=== PATIENT | male | born 1930 | race Caucasian/White ===

== ENCOUNTER → 2017-08-11 | Outpatient (CLI) | payer MEDICARE, OTHER ==
[~2017-08-11] MED LIST: ACYCLOVIR 400400 MG PO; ALLEGRA ALLERG180 MG; ALLEGRA ALLERG180 MG PO; ALLOPURINOL 30300 M1 PO; AMARYL2 M1 PO; AMBIEN 10 MG TA10 MG PO; ASPIRIN-DIPYRI1 EACH PO; AUGMENTIN 875875 M1; CARAFATE 11 GM/10 M1 PO; CARVEDILOL3.125 MG PO; DIFLUCAN150 MG PO; DIOVAN 80 MG TA80 M1 PO; DIOVAN160 MG PO; FLOMAX PO; HYDROCODON-ACE1 EAC7 PO; IMDUR 30 MG TAB30 M1 PO; K-DUR 20 MEQ T20 MEQ PO; LANOXIN 0.120.125 M1 PO; LASIX 20 MG TAB20 MG PO; LIPITOR 20 MG T20 M1 PO; LO-DOSE ASPIRIN81 M1 PO; METFORMIN HCL500 M2 PO; MOBIC15 MG PO; NEXIUM 40 MG CA40 M1 PO; NITROGLYCERIN0.4 MG SUBLING; RESTASIS1 EACH OPHTHALMIC; SYNTHROID75 MCG PO; TOPROL XL50 MG PO; VICTOZA0.6 MG/0.1 SUBQ; ZOCOR40 MG PO
--- NOTE | 2017-08-26 13:59 | PAINCON ---
[address] [address] PAIN MANAGEMENT CONSULTATION Name: CALVIN SCHMITT Room: [facility] Pina#: [id number] Admission: 08/11/17 Attend Phys: Aston Read MD Discharge: Date of : 30 Report #: [id number] THIS REPORT FOR: //name// CC: Rachel Rodriguez DATE OF SERVICE: 08/11/2017 CHIEF COMPLAINT: Pain in the left side of the neck and down into the shoulder. HISTORY OF PRESENT ILLNESS: The patient is an 87-year-old gentleman who has been referred to the pain clinic for evaluation of neck pain. The patient states that he has been experiencing pain and discomfort, which has been increasingly problematic. He states that he last year was moving snow off his deck. He states that he stepped on a step, slipped and fell backwards. He had his right hand behind his head. He did not hit his head. He denies loss of consciousness. He also recounts the activity where he was "going to bed." The next thing he remembered was waking up in the hospital. The patient states that he remained in the hospital for about 6 days. The patient states that imaging of his head did not show an infarct or hemorrhage or masses. He states that he had an MRI in the past that showed some spondylosis which was worse in the mid portion of his neck as well as some spinal stenosis. He rates his pain as a 7/10 at this juncture. He is not sure, but he may feel that there has been some tingling down into his arms. Not so much at this moment. He has tried some [id number] medications as well as muscle relaxant. He has used [place]/hydrocodone ____ 2 a day for about the past 15 years. ALLERGIES: No known drug allergies. CURRENT MEDICATIONS: Aspirin/dipyridamole 25/200 mg b.i.d., Lipitor 20 mg daily, Coreg 3.125 mg b.i.d., Restasis each eye b.i.d., digoxin 0.125 mg daily, Nexium 40 mg, Savanna 180 mg, Lasix 20 mg as directed, Amaryl 2 mg, hydrocodone 5/325 q.4h. p.r.n., Imdur 30 mg, levothyroxine 75 mcg, metformin 500 mg 2 tablets b.i.d., nitroglycerin 0.4 mg sublingual, potassium 20 mEq with Lasix, Flomax 0.4 mg daily, Diovan 80 mg, and Ambien 10 mg at bedtime. PAST MEDICAL HISTORY: Angioplasty, coronary artery disease, cervical radiculopathy history, chronic kidney disease, congestive heart failure, diabetes, hypothyroidism, and thoracic radiculopathy. PAST SURGICAL HISTORY: Back surgery, cardiac pacemaker placement, cataract extraction, colonoscopy, EGD procedure, hernia repair, kidney stone surgery, nerve surgery, right groin, rotator cuff, bilateral, stent replacement, [place] [address] PAIN MANAGEMENT CONSULTATION Name: CALVIN SCHMITT Room: [facility]#: [id number] Admission: 08/11/17 Attend Phys: Aston Read MD Discharge: Date of : 30 Report #: [id number] SOCIAL HISTORY: He is a former smoker. Denies use of tobacco at this juncture. Denies use of alcoholic beverages. REVIEW OF SYSTEMS: Questionnaire indicates wears glasses, heart trouble, shortness of breath while lying flat, insulin. Otherwise, 12-point review unremarkable. LABORATORY DATA: MRI of cervical spine with performed 02/03/2017 reveal: 1. Straightening of cervical lordosis. Mild to moderate deep multilevel degenerative and disc desiccation and disc height loss, worse at C6-C7. 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 No marrow replacement. Discogenic endplate changes at C6-C7. 2. C4-C5 posterior disc osteophyte complex with right and severe left facet arthrosis. Result in mild to moderate spinal canal stenosis and mild left-sided lateral recess and neural foraminal stenosis. 3. C5-C6 posterior disc osteophyte complex with mild right and severe left facet arthrosis. 4. C6-C7 posterior disc osteophyte complex with moderate bilateral facet arthrosis. Result in mild spinal canal stenosis and mild bilateral recess and neural foraminal stenosis. 5. C7-T1: No significant spinal canal stenosis or neural foraminal narrowing. PAIN CLINIC ASSESSMENT: 1. The patient has some arthritic changes in his cervical spine. 2. Height 6 feet, weight 203 pounds, BMI is 27. 3. VITAL SIGNS: Blood pressure was 96/63, heart rate 79, respiratory rate 16, room air saturation is 98, temperature 97.3. 4. Pain score: The patient rates his pain as a 7/10. 5. Fall. The patient has not fallen in the last 3 months, but did fall in early March as well as a fall when he slipped off the porch in the winter. 6. Blood thinner. The patient is on an aspirin and dipyridamole b.i.d. He will stop this medication for 7 days. Return for treatment. 7. Hypertension. The patient is being treated for hypertension. 8. Opioid therapy. The patient is on an opioid therapy and does receive medications greater than 6 weeks using hydrocodone. 9. Risk assessment tool. 10. Functional assessment tool. 11. Recreational drug use. The patient denies use of recreational drugs. 12. Tobacco: The patient smoked in the past, but does not smoke at this juncture. 13. Alcohol: The patient denies use of alcoholic medications. PHYSICAL EXAMINATION: GENERAL: The patient is a well-developed white male. He appears his stated age. He is alert and oriented x 3. Affect is appropriate. Speech is fluent. HEENT: Normocephalic, atraumatic. [place] [address] PAIN MANAGEMENT CONSULTATION Name: CALVIN SCHMITT Room: [facility]#: [id number] Admission: 08/11/17 Attend Phys: Aston Read MD Discharge: Date of : 30 Report #: [id number] generally within normal limits. Mucous membranes are moist. NECK: Some limitations in flexion, extension, left and right lateral bending, left and right lateral rotation. The patient has a perception of some grinding sensation when he turns his head from one side to the next. HEART: Regular rate. S1, S2. LUNGS: Clear to auscultation without rales or rhonchi. ABDOMEN: Nontender. EXTREMITIES: Upper extremity muscle strength is judged to be 5/5 for the major muscle groups in the upper extremity. Deep tendon reflexes are trace for the left as well as the right side. The patient has some increased pain and discomfort in the shoulders bilaterally. Both have been surgerized in the past. Java Application Engineer strength 5/5 for the major muscle groups in the upper extremity with symmetry of muscles. Lower extremity muscle strength is judged to be 5/5. Deep tendon reflexes are absent in the ankles and in the patellar areas. Muscles are symmetrical. The patient has some well-healed scar in the lower portion of his back. Has bilateral left and right shoulder pain. Able to lift his arms up to horizontal and then note some increased pain and discomfort in the shoulder areas. Palpation in the neck near the levator scapulae causes a reproduction of a significant component of his pain. Pain in the upper neck with the insertion of the levator scapulae is sore to palpation. The patient has some soreness at approximately T3-4 midline tenderness to palpation. IMPRESSION: Left neck pain with shoulder pain as well as some midline back pain, coronary artery disease, cervical radiculopathy history, chronic kidney disease, congestive heart failure, diabetes, hypothyroidism, and thoracic radiculopathy. RECOMMENDATIONS: We discussed treatment options with the patient. He has pain and discomfort in the left shoulder area. Trigger point areas are noted. He will stop his blood thinning medication. He will return in 1 week, at which time, he will then undergo trigger point injections to the affected areas of his left shoulder, mid back and neck. Risks and benefits of the procedures were discussed with the patient. We will review them again when he returns. We would like to thank you for letting us participate in his care. We hope he continues to improve. <ELECTRONICALLY SIGNED> By: Aston Read MD 08/26/17 1359 1410 1956N. Darrell Read MD /nt
== END ==
LOC: M.PC 00:09
DX: E11.22 Type 2 diabetes mellitus with diabetic chronic kidney disease (principal); I50.9 Heart failure, unspecified; I25.10 Atherosclerotic heart disease of native coronary artery without angina pectoris; M54.2 Cervicalgia; M25.512 Pain in left shoulder; M54.5 Low back pain; M54.14 Radiculopathy, thoracic region; E03.9 Hypothyroidism, unspecified

== ENCOUNTER → 2017-08-20 | Outpatient (CLI) | payer MEDICARE, OTHER ==
--- NOTE | 2017-08-26 14:14 | PAINCON ---
[address] [address] PAIN MANAGEMENT CONSULTATION Name: CALVIN SCHMITT Room: [facility]#: [id number] Admission: 08/20/17 Attend Phys: Aston Read MD Discharge: Date of : 30 Report #: [id number] THIS REPORT FOR: //name// CC: Rachel Ayala DO DATE OF SERVICE: 08/20/2017 FOLLOWUP COMPLAINT: Pain in the neck and in the left shoulder. HISTORY OF PRESENT ILLNESS: The patient is an 87-year-old gentleman who has been referred to the pain clinic for evaluation. The patient states that he has been experiencing pain and discomfort in his left shoulder, posterior neck, and upper occipital portion of his head. He has been told that he has some spinal stenosis. He feels that on occasion. He has experienced some tingling, which has radiated down into his arms. At this juncture, it is more pain in the shoulder occipital area and scapular area on his back. He has returned to the pain clinic for trigger point injections today. ALLERGIES: No known drug allergies. MEDICATIONS: Aspirin/dipyridamole 25/200 mg b.i.d. The patient has not taken this for a number of days, Lipitor 20 mg daily, Coreg 3.125 mg b.i.d., Restasis each eye, digoxin 0.125 mg daily, Nexium 40 mg, Savanna 180 mg, Lasix 20 mg as directed, Amaryl 20 mg, hydrocodone 5/325 p.r.n., Imdur 30 mg, levothyroxine 75 mcg, metformin 500 mg b.i.d., nitroglycerin 0.4 mg sublingual, potassium 20 mEq with Lasix, Flomax 0.4 mg daily, Diovan 80 mg, Ambien 10 mg at bedtime. PAIN CLINIC ASSESSMENT: 1. The patient has some arthritic changes in the cervical spine. 2. Height 6 feet, Weight 203 pounds, BMI is 27.5. 3. Vital signs: Blood pressure 104/70, heart rate 78, respiratory rate 16, room air saturation 97%, temperature 97.5. 4. Pain clinic score, the patient rates his pain as a 5 today, down from 7 at the last visit out of 10. 5. Fall history: The patient has not fallen in the last 3 months, but did fall in March when he slipped on a porch. 6. Hypertension. The patient is being treated for hypertension. 7. Opioid. The patient is on opioid therapy, and has received the medication for greater than 6 weeks. 8. Risk assessment tool. 9. Functional assessment tool. 10. Recreational drug use. The patient denies use of recreational drugs. 11. Tobacco. The patient smoked in the past, [place] [address] PAIN MANAGEMENT CONSULTATION Name: CALVIN SCHMITT Room: [facility]#: [id number] Admission: 08/20/17 Attend Phys: Aston Read MD Discharge: Date of : 30 Report #: [id number] time. 12. Alcohol: The patient denies use of alcoholic beverages. PHYSICAL EXAMINATION: GENERAL: The patient is a well-developed white male. He appears his stated age. He is alert and oriented x 3. His affect is appropriate. Speech is fluent. HEENT: Normocephalic, atraumatic. Extraocular eye muscles intact. Hearing is within normal limits. The patient does have some pain and discomfort in the left occipital area. Palpation in this area does reproduce some discomfort. The patient notes some limitation in flexion, extension, left and right lateral bending, left and right lateral rotation. The patient has a perception of some grinding sensation in his neck. Has pain and discomfort in the area of the levator scapulae. Has pain and discomfort in the area of the left trapezius muscle. HEART: Regular rate. S1, S2. LUNGS: Clear to auscultation without rales or rhonchi. ABDOMEN: Nontender. EXTREMITY: Upper extremity muscle strength is judged to be 5/5 for the major groups with symmetry. He has the perception that his arms are weak. Revenue Liaison strength is judged to be 5/5. The patient does require some assistance when he is lying on the examination table for the procedure and goes from a prone position to a sitting position. Muscle strength in the lower extremities is judged to be 5/5 for the major muscle groups in lower extremities. Palpation in his neck near the levator scapulae, trapezius on the left side and occipital area causes a reproduction of the patient's discomfort. IMPRESSION: 1. Left neck pain with shoulder pain with some midline discomfort. 2. Coronary artery disease. 3. Cervical radiculopathy history. 4. Chronic kidney disease. 5. Congestive failure history. 6. Diabetes. 7. Hypothyroidism. 8. Thoracic radiculopathy. RECOMMENDATIONS: We discussed treatment options with the patient. Risks and benefits of trigger point injections were explained. Possible complications of an increased bleeding, headache, worsening of pain, no improvement in pain, thoracic puncture with a pneumothorax were reviewed. The patient elects to proceed. He has noted some increased swelling in his lower extremities. Left leg has +1 edema to mid calf and more swelling than the contralateral left side. The patient has a little difficulty getting his shoes on and the lace because of the swelling. States he noticed this after he stopped taking his blood thinning medication. The patient agrees to proceed with the procedure. [address] [address] PAIN MANAGEMENT CONSULTATION Name: CALVIN SCHMITT Room: [facility]#: [id number] Admission: 08/20/17 Attend Phys: Aston Read MD Discharge: Date of : 30 Report #: [id number] PROCEDURE NOTE: The patient was placed in the sitting position. His neck was sterilely prepped with a chlorhexidine solution in the trapezius area. A trigger point was noted. A 25-gauge needle was then advanced into the area of discomfort. The patient states this reproduced his discomfort. Total of 6 mL of 0.5%, bupivacaine and 25 mg triamcinolone was injected. The levator scapulae was then palpated. A 25-gauge needle was then advanced into this area. A total of 25 mg triamcinolone with 6 mL of 0.5% bupivacaine was injected. The patient tolerated the procedure well. The patient was then placed in the prone position. The occipital area had been sterilely prepped with Betadine. It was allowed to dry. A 25-gauge needle was then advanced into this area. A total of 6 mL of 0.5% bupivacaine with 30 mg triamcinolone was injected. The patient tolerated the procedure well. There were no complications. He remained in the pain clinic for an appropriate amount of time. He will follow up in the future as needed. We would like to thank you for letting us participate in his care. We hope he continues to improve. <ELECTRONICALLY SIGNED> By: Aston Read MD 08/26/17 1414 1603 1858N. Darrell Read MD /PMT
== END | disposition home or self-care (01) ==
LOC: M.PC 02:20
DX: M79.1 Myalgia (principal); M54.12 Radiculopathy, cervical region; I13.0 Hypertensive heart and chronic kidney disease with heart failure and stage 1 through stage 4 chronic kidney disease, or unspecified chronic kidney disease; E11.22 Type 2 diabetes mellitus with diabetic chronic kidney disease; N18.9 Chronic kidney disease, unspecified; I50.9 Heart failure, unspecified; I25.10 Atherosclerotic heart disease of native coronary artery without angina pectoris; E03.9 Hypothyroidism, unspecified; M54.14 Radiculopathy, thoracic region; Z87.891 Personal history of nicotine dependence; Z79.899 Other long term (current) drug therapy; Z98.890 Other specified postprocedural states; Z79.82 Long term (current) use of aspirin; Z79.891 Long term (current) use of opiate analgesic

== ENCOUNTER → 2018-01-14 | Outpatient (CLI) | payer MEDICARE, OTHER ==
--- NOTE | 2018-01-27 16:38 | PAINCON ---
[address] [address] PAIN MANAGEMENT CONSULTATION Name: CALVIN SCHMITT [facility] [id number] Admission: 01/14/18 Attend Phys: Aston Read MD Discharge: Date of : 30 Report #: [id number] THIS REPORT FOR: //name// CC: Aston Rodriguez DATE OF SERVICE: 01/14/2018 FOLLOWUP COMPLAINT: Pain in the left shoulder, which is going down in my arm as well. FOLLOWUP HISTORY: The patient is an 87-year-old gentleman who has been seen in the pain clinic. He was treated in August for left shoulder pain. He underwent trigger point injections to his shoulder area. He had clean benefits from that. He returns today indicating that he is having more pain and discomfort. It is more problematic. His is handicapped. So he has to do most of the activities at home. He does have a lawnmower which he uses to mow approximately 6 acres of land. 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 After some period of time while riding the more he notes some increased pain and discomfort in his shoulder. He then stopped mowing. Gets becomes in and sometimes rests for. He will then resume his activity. He does note some increased stiffness in the arm and shoulder area 1-2 days after his activities. He has returned today with the desire to undergo an injection to the shoulder. He has stopped his Aggrenox and has been off this medication for the last 7 days in preparation for an injection. ALLERGIES: No known drug allergies. CURRENT MEDICATIONS: Aspirin/dipyridamole 25/200 mg b.i.d., Lipitor 20 mg daily, Coreg 3.125 b.i.d., Restasis each eye, digoxin 0.125 mg daily, Nexium 40 mg, [place]anna 180 mg, Lasix 20 mg, Amaryl 20 mg, hydrocodone 5/325 p.r.n., Imdur 30 mg, levothyroxine 75 mcg, metformin 500 mg b.i.d., nitroglycerin 0.4 mg sublingual, potassium 20 mEq with Lasix, Flomax 0.4 mg daily, Diovan 80 mg, Ambien 10 mg at bedtime. PAIN CLINIC ASSESSMENT/PQRS: 1. The patient has some arthritic changes involving the cervical spine. Also, has some changes in his left shoulder. The patient is not being treated for rheumatoid arthritis. 2. Height 6 feet 0 inches, weight 220 pounds, BMI is 27.3. 3. Vital signs: Blood pressure 112/64, heart rate 74, respiratory rate 16, room air saturation is 98, temperature 97.8. 4. Pain 6/10. 5. Fall risk. The patient has not fallen in the last 3 months. 6. Hypertension. The patient is being treated for hypertension. 7. Opioids greater than 36 weeks. The patient is [place] [address] PAIN MANAGEMENT CONSULTATION Name: CALVIN SCHMITT [facility] [id number] Admission: 01/14/18 Attend Phys: Aston Read MD Discharge: Date of : 30 Report #: [id number] medication can be helpful. 8. Risk assessment tool, low for opioid use. 9. Functional assessment tool. 10. Recreational drug use. The patient denies use of recreational drugs. 11. Tobacco: The patient smoked, in the past has not smoked for quite some time. 12. Alcohol: The patient denies use of alcoholic beverages. PHYSICAL EXAMINATION: GENERAL: The patient is a well-developed, well-nourished white male. Appears his stated age. He is alert and oriented x3. His affect is appropriate. Speech is fluent. HEAD, EYES, EARS, NOSE, AND THROAT: Normocephalic, atraumatic. Extraocular muscles intact. The patient has some hearing judged to be within normal limits. The patient has pain and discomfort in the left shoulder. Palpation in the anterior portion of the humerus head and posterior portion can reproduce some pain and discomfort. The patient also complains of pain that radiates from his deltoid down to the elbow area. Notes that this is problematic, particularly if he is pushing or pulling items. He is limited in his ability to internal and external rotators shoulder. HEART: Regular rate. S1, S2. LUNGS: Clear to auscultation without rhonchi or rales. ABDOMEN: Nontender muscle are nontender. bowel sounds are within normal limits. EXTREMITIES: Strength is judged to be 4/5 on the right and about 3/4 on the left secondary to the patient give way to confrontation. Muscles in the lower extremity is judged to be 5-/5 for the major muscle groups. The patient uses his hands to go from a sitting to a standing position. IMPRESSION: 1. Left shoulder pain. 2. Coronary artery disease. 3. Cervical radicular history: 4. Chronic kidney disease. 5. Congestive heart failure history. 6. Diabetes. 7. Hypothyroidism. 8. Thoracic radiculopathy. RECOMMENDATIONS: We discussed treatment options with the patient. Risks and benefits of a trigger point injection to the affected area were discussed. They could include but are not limited to infection, worsening of pain, no improvement in pain and the patient elects to proceed. PROCEDURE NOTE: The patient was taken to the procedure area. He was assisted in getting on the examination table. The [place] [address] PAIN MANAGEMENT CONSULTATION Name: CALVIN SCHMITT Josefina Room: [facility]#: [id number] Admission: 01/14/18 Attend Phys: Aston Read MD Discharge: Date of : 30 Report #: [id number] table. Each chair was placed under his feet. His left shoulder was sterilely prepped with a chlorhexidine solution. Palpation in the shoulder area reproduced pain and discomfort into this area of the anterior portion of his shoulder. This area was sterilely prepped with a chlorhexidine solution. A 25-gauge needle was then advanced into the anterior shoulder area. Aspiration was negative. A total of 40 mg triamcinolone with 8 mL of 0.5% bupivacaine was injected. The patient tolerated that injection well. The second injection in the posterior portion of his shoulder was palpated. A 25-gauge needle was then advanced into the area of the shoulder area. This reproduced the patient's discomfort. Aspiration was negative. A total of 8 mL of 0.5% bupivacaine and 40 mg triamcinolone was injected. The patient tolerated the procedure well. He remained in the pain clinic for an appropriate amount of time. He will follow up in the future as needed. We would like to thank you for letting us to participate in his care. We hope he continues to improve. <ELECTRONICALLY SIGNED> By: Aston Read MD 01/27/18 1638 1602 1937N. Darrell Read MD /[facility]
== END | disposition home or self-care (01) ==
LOC: M.PC 01-07 12:30
DX: M79.18 Myalgia, other site (principal); M25.512 Pain in left shoulder; M54.12 Radiculopathy, cervical region; I13.0 Hypertensive heart and chronic kidney disease with heart failure and stage 1 through stage 4 chronic kidney disease, or unspecified chronic kidney disease; E11.22 Type 2 diabetes mellitus with diabetic chronic kidney disease; N18.6 End stage renal disease; I25.10 Atherosclerotic heart disease of native coronary artery without angina pectoris; I50.9 Heart failure, unspecified; E03.9 Hypothyroidism, unspecified; M54.14 Radiculopathy, thoracic region; Z79.82 Long term (current) use of aspirin; Z79.891 Long term (current) use of opiate analgesic; Z87.891 Personal history of nicotine dependence; Z79.899 Other long term (current) drug therapy

== ENCOUNTER 2018-04-29 01:42 | Inpatient (IN) | payer MEDICARE, OTHER ==
[~2018-04-29] VITALS: Ht 182.9 cm; Wt 85.3 kg
[2018-04-29 01:44] VITALS: BP 73/51
[2018-04-29] MEDS ORDERED: PROSCAR 5MG TABL5 MG PO (01:50)
[2018-04-29] MEDS ORDERED: ENTRESTO 49 MG1 EACH PO (01:50)
[2018-04-29 02:39] LABS: ABSOLUTE LYMPHOCYTES 1.3 thou/uL (0.8-5.3); ABSOLUTE MONOCYTES 0.4 thou/uL (0.0-1.2); ABSOLUTE NEUTROPHILS 2.7 thou/uL (1.6-8.1); BASOPHILS 0.3 %; EOSINOPHILS 1.1 %; HEMATOCRIT 34.6 % (42.0-52.0); HEMOGLOBIN 11.5 gm/dL (14.0-18.0); LYMPHOCYTES 28.3 %; MCH 30.1 pg (26.0-34.0); MCHC 33.2 g/dL (28.0-37.0); MCV 90.7 fL (80.0-100.0); MONOCYTES 9.6 %; MPV 8.1 fl. (7.2-11.1); NUCLEATED RBCS 0 /100WBC; PLATELET COUNT* 89 thou/uL (150-400); POLYS 60.7 %; RBC 3.82 mil/uL (4.50-6.00); RDW-CV 16.5 % (10.5-14.5); WBC 4.5 thou/uL (4.0-11.0)
[2018-04-29 02:52] LABS: ANION GAP 6 mmol/L (7-16); BUN 35 mg/dL (7-18); CALCIUM 8.2 mg/dL (8.5-10.1); CHLORIDE 107 mmol/L (98-107); CO2 27 mmol/L (21-32); CREATININE 1.9 mg/dL (0.6-1.3); GLUCOSE 125 mg/dL (70-99); POTASSIUM 4.6 mmol/L (3.5-5.1); SODIUM 140 mmol/L (136-145)
[2018-04-29 02:55] LABS: INR 1.2; PROTIME 11.9 Seconds (9.20-11.50)
--- NOTE | 2018-04-29 02:55 | NUR ---
PT SON AT BEDSIDE
[2018-04-29 03:03] LABS: ALBUMIN 2.9 g/dL (3.4-5.0); ALKALINE PHOSPHATASE 47 U/L (46-116); NT-PRO BRAIN NAT PEPTIDE 225 pg/mL (<300); SGOT 12 U/L (15-37); SGPT 21 U/L (30-65); TOTAL BILIRUBIN 0.7 mg/dL (<0.1-1.0); TOTAL PROTEIN 5.3 g/dL (6.4-8.2); TROPONIN-I LEVEL <0.06 ng/mL (<0.06)
[2018-04-29 03:10] LABS: URINE BLOOD NEGATIVE (Negative); URINE CLARITY CLEAR; URINE COLOR YELLOW; URINE GLUCOSE-RANDOM TRACE (Negative); URINE KETONES NEGATIVE (Negative); URINE LEUKOCYTES-REFLEX NEGATIVE (Negative); URINE NITRITE-REFLEX NEGATIVE (Negative); URINE PROTEIN NEGATIVE (Negative); URINE SPECIFIC GRAVITY >= 1.030 (1.005-1.030); URINE UROBILINOGEN 0.2 E.U./dl (0.2-1.0)
[2018-04-29 03:14] LABS: ICTOTEST (BILI CONFIRMATORY) Negative (Negative); URINE BILIRUBIN 1+ (Negative)
--- NOTE | 2018-04-29 03:50 | NUR ---
PT AND PT FAMILY UPDATED ON POC. PT STATES UNDERSTANDING. WARM BLANKET PROVIDED.
--- NOTE | 2018-04-29 04:12 | NUR ---
PT USED URINAL AT BEDSIDE X1 ASSIST.
[2018-04-29 06:50] VITALS: BP 113/68; BP 115/68
--- NOTE | 2018-04-29 07:39 | NUR ---
PT ARRIVED FROM ER AROUND 0540. SETTLED PT INTO ROOM, UP WITH ASSIST TO BATHROOM, PASSING GAS, NO C/O PAIN. ABLE TO MAKE NEEDS KNOWN. EDUCATION GIVEN, VITALS TAKEN, AND PAPERWORK SIGNED. PT IS A & O X 4. WILL CONTINUE TO MONITOR.
[2018-04-29 08:17] VITALS: BP 17/65
--- NOTE | 2018-04-29 13:10 | EKG ---
[place] [address] ELECTROCARDIOGRAM REPORT Name: CALVIN SCHMITT Room: [address] ADM IN .R.#: [id number] Admission: 04/29/18 Attend Phys: Divya Dover MD Discharge: Date of : 30 Report #: [id number] THIS REPORT FOR: //name// [facility] ED Test Date: 2018-04-29 Test Time: 01:46:25 Pat Name: CALVIN SCHMITT Department: Room: [facility] Gender: Rooter Operator: Ramy ORTEGA : 1930 Requested By: Yana Francis Order Number: [id number] MD: Chirag Galloway Measurements Intervals [place] Rate: 74 P: -54 [place]: 166 QRS: 242 QRSD: 129 T: 60 QT: 392 QTc: 435 Interpretive Statements Atrial-sensed ventricular-paced complexes No further analysis attempted due to paced rhythm Compared to ECG 04/12/2012 13:22:07 Sinus rhythm no longer present Ventricular premature complex(es) no longer present paced beats now noted Electronically Signed On 04-29-2018 13:10:23 DIETETIC TECHNICIAN REGISTERED by Chirag Galloway [email or web address] <ELECTRONICALLY SIGNED> By: Chirag Galloway MD, [facility] 04/29/18 1310 5 0146 Chirag Galloway MD, [facility] /EPI
--- NOTE | 2018-04-29 14:56 | NUR ---
Pt was having testing done when CM went to assess, will f/u later
--- NOTE | 2018-04-29 15:09 | 2DMMODE ---
[place] [address] 2 D/M-MODE ECHOCARDIOGRAM Name: CALVIN SCHMITT Room: [address] IN [facility]#: [id number] Admission: 04/29/18 Attend Phys: Divya Dover, Discharge: Date of : 30 Date of Service: 04/29/18 1508 Report #: [id number] THIS REPORT FOR: //name// APPROVED REPORT Study performed: 04/29/2018 13:27:59 EXAM: Comprehensive 2D, Doppler, and color-flow Echocardiogram Patient Location: In-Patient Room #: 208 Status: routine BSA: 2.08 HR: 70 bpm BP: 117/65 mmHg Rhythm: NSR Other Information Study Quality: Good Indications Pacemaker CAD Chest Pain 2D Dimensions IVSd: 11.91 (7-11mm) LVOT Diam: 21.92 (18-24mm) LVDd: 52.86 mm PWd: 10.84 (7-11mm) Ascending Ao: 34.09 (22-36mm) LVDs: 35.87 (25-40mm) Aortic Root: 36.25 mm Volumes Left Atrial Volume (Systole) LA ESV Index: 23.90 mL/m2 Aortic Valve AoV Peak Kingsley.: 1.25 m/s AO Peak Gr.: 6.22 mmHg LVOT Max P.24 mmHg AO Mean Gr.: 3.65 mmHg LVOT Mean P.87 mmHg LVOT Max V: 1.03 m/s AO V2 VTI: 21.70 cm LVOT Mean V: 0.62 m/s JUAN (VTI): 2.98 cm2 LVOT V1 VTI: 17.14 cm Mitral Valve E/A Ratio: 0.85 [place] [address] 2 D/M-MODE ECHOCARDIOGRAM Name: CALVIN SCHMITT Room: [address] IN .R.#: [id number] Admission: 04/29/18 Attend Phys: Divya Dover, Discharge: Date of : 30 Date of Service: 04/29/18 1508 Report #: [id number] MV Decel. Time: 312.32 ms MV E Max Kingsley.: 0.46 m/s MV PHT: 90.57 ms MVA (PHT): 2.43 cm2 TDI E/Lateral E': 6.57 E/Medial E': 5.75 Medial E' Kingsley.: 0.08 m/s Lateral E' Kingsley.: 0.07 m/s Pulmonary Valve PV Peak Kingsley.: 0.81 m/s PV Peak Gr.: 2.60 mmHg Left Ventricle The left ventricle is normal size. There is akinesis of the mid to distal anterior wall and apex. There is normal left ventricular wall thickness. Left ventricular systolic function is mildly decreased. LVEF is 45-50%. Grade I - abnormal relaxation pattern. Right Ventricle The right ventricle is normal size. The right ventricular systolic function is normal. Pacemaker lead is present in the right ventricle. Atria The left atrium size is normal. The right atrium size is normal. Aortic Valve The aortic valve is normal in structure. No aortic regurgitation is present. There is no aortic valvular stenosis. Mitral Valve The mitral valve is normal in structure. There is no mitral valve regurgitation noted. No evidence of mitral valve stenosis. Tricuspid Valve The tricuspid valve is normal in structure. Trace tricuspid regurgitation. Unable to assess PA pressure. Pulmonic Valve The pulmonary valve is normal in structure. There is no pulmonic valvular regurgitation. Great Vessels The aortic root is normal in size. IVC is normal in size and collapses >50% [place] [address] 2 D/M-MODE ECHOCARDIOGRAM Name: CALVIN SCHMITT Room: [address] IN [facility]#: [id number] Admission: 04/29/18 Attend Phys: Divya Dover, Discharge: Date of : 30 Date of Service: 04/29/18 1508 Report #: [id number] Pericardium There is no pericardial effusion. <Conclusion> The left ventricle is normal size. There is normal left ventricular wall thickness. Left ventricular systolic function is mildly decreased. LVEF is 45-50%. Grade I - abnormal relaxation pattern. There is akinesis of the mid to distal anterior wall and apex. Pacemaker lead is present in the right ventricle. IVC is normal in size and collapses >50% with inspiration. <ELECTRONICALLY SIGNED> By: Yasmany Chen MD, FACC 04/29/18 1508 1508 1508 Yasmany Chen MD, FACC /INF
[2018-04-29 16:42] VITALS: BP 113/63
--- NOTE | 2018-04-29 18:30 | NUR ---
PT WITHOUT C/O TODAY. PT DENIES PAIN OR DISCOMFORT. PT UP INDEPENDENTLY IN ROOM. TELE AV PACED. PT ABLE TO MAKE NEEDS KNOWN, CALL LIGHT IN REACH
[2018-04-29 19:10] VITALS: BP 99/63
--- NOTE | 2018-04-29 23:20 | NUR ---
PT ASSESSMENT COMPLETED AT START OF SHIFT. PT CAN BE FORGETFUL AT TIMES, OTHERWISE ALERT & ORIENTED AND ABLE TO VOICE ALL NEEDS. PT STATES THAT HE IS FEELING "MUCH BETTER TONIGHT". PT DENIES PAIN,N/V/D. VSS. HOURLY ROUNDING IN PLACE FOR SAFETY. CLWR.
[2018-04-30] VITALS: BP 118/68
[2018-04-30 04:00] VITALS: BP 117/62
[2018-04-30 04:51] LABS: HEMATOCRIT 37.4 % (42.0-52.0); HEMOGLOBIN 12.4 gm/dL (14.0-18.0); MCH 30.3 pg (26.0-34.0); MCHC 33.2 g/dL (28.0-37.0); MCV 91.2 fL (80.0-100.0); MPV 8.9 fl. (7.2-11.1); RBC 4.11 mil/uL (4.50-6.00); RDW-CV 16.4 % (10.5-14.5); WBC 4.9 thou/uL (4.0-11.0)
[2018-04-30 05:19] LABS: ANION GAP 11 mmol/L (7-16); BUN 25 mg/dL (7-18); CALCIUM 8.5 mg/dL (8.5-10.1); CHLORIDE 108 mmol/L (98-107); CHOLESTEROL 115 mg/dL (<200); CO2 25 mmol/L (21-32); CREATININE 1.4 mg/dL (0.6-1.3); GLUCOSE 83 mg/dL (70-99); HDL CHOLESTEROL 40 mg/dL (>40); LDL CHOLESTEROL 53 mg/dL (<100); MAGNESIUM 1.1 mg/dL (1.8-2.4); POTASSIUM 4.6 mmol/L (3.5-5.1); SODIUM 144 mmol/L (136-145); TC:HDL 2.9 Ratio (Not establshd); TRIGLYCERIDE 113 mg/dL (<150); VLDL 23 mg/dL (<40)
[2018-04-30 05:20] LABS: SERUM ASSESSMENT Clear
[2018-04-30 08:00] VITALS: BP 115/74
--- NOTE | 2018-04-30 08:00 | NUR ---
ASSUMED CARE OF PT AT 0730. PT RESTING IN BED WAITING FOR STRESS TEST. PT NPO AT THIS TIME. PT A&0X4, FORGETFUL AT TIMES. PT TRACING V PACED ON THE ONSITE HEALTH COACH. ON RA SAT UPPER 90'S. PT DENIES ANY PAIN OR SHORTNESS OF BREATH AT THIS TIME. IVF. PT UP SBA. PT GOAL FOR TODAY IS TO HAVE STRESS TEST AND DISCHARGE PLANNING TO HOME. AM ASSESSMENT CHARTED. MEDICATIONS PER MAR. PT REPOSITIONS SELF. HOURLY ROUNDING OBSERVED. BED IN LOW POSITION. CALL LIGHT WITHIN REACH. WILL CONTINUE PLAN OF CARE.
[2018-04-30 11:58] VITALS: BP 121/77
--- NOTE | 2018-04-30 12:32 | NUR ---
CM completed initial assessment to discuss home situation and d/c planning. pt A&Ox4. pt independent w/all ADLs and helps care for who is "handicap" per pt. pt cooks, cleans, drives. has adequate family support from son and d-i-l that live next door and comes by daily to help w/pt's . pt also receives support from daughter and granddaugthers. pt has no hx w/snf. has hx w/hh but doesnt remember which one and does not have a preference. pt denies any needs at this time. CM will remain available to provide assistance as needed.
[2018-04-30 12:40] VITALS: BP 121/77
[2018-04-30] MEDS ORDERED: ASPIR 8181 MG PO (13:20)
[2018-04-30 15:38] VITALS: BP 90/55
--- NOTE | 2018-04-30 17:25 | NUR ---
DISCHARGE ORDERS RECEIVED FOR PT TO DISCHARGE HOME AND FOLLOW UP WITH STRESS TEST ON WEDNESDAY 05/03 AT 10:00AM. DISCHARGE ORDERS RECEIVED. DISCHARGE INSTRUCTIONS, CARE NOTES, AND FOLLOW UP APPTS GIVEN TO PT. PT COMMUNICATES UNDERSTANDING OF DISCHARGE TEACHING. IV AND KIDS CLUB ATTENDANT REMOVED. PT DISCHARGED WITH ALL BELONGINGS AND PAPERWORK VIA WHEELCHAIR WITH NURSING STAFF TO SONS OWN PERSONAL VEHICLE.
== END 2018-04-30 17:36 | disposition home or self-care (01) | DRG 303 ==
LOC: M.ERS 01:42 → M.TBA-ER 04:57 → M.2W 04:57
PROVIDERS: Emergency Medicine; ADMIT Internal Medicine
DX: I25.10 Atherosclerotic heart disease of native coronary artery without angina pectoris (principal); I50.22 Chronic systolic (congestive) heart failure; F41.9 Anxiety disorder, unspecified; I11.0 Hypertensive heart disease with heart failure; E11.9 Type 2 diabetes mellitus without complications; I95.9 Hypotension, unspecified; E78.5 Hyperlipidemia, unspecified; N28.9 Disorder of kidney and ureter, unspecified; E03.9 Hypothyroidism, unspecified; K21.9 Gastro-esophageal reflux disease without esophagitis; M19.90 Unspecified osteoarthritis, unspecified site; Z95.5 Presence of coronary angioplasty implant and graft; Z87.442 Personal history of urinary calculi; Z79.84 Long term (current) use of oral hypoglycemic drugs; Z79.82 Long term (current) use of aspirin; Z79.899 Other long term (current) drug therapy; I25.2 Old myocardial infarction; Z95.810 Presence of automatic (implantable) cardiac defibrillator

== ENCOUNTER → 2018-05-03 | Outpatient (CLI) | payer MEDICARE, OTHER ==
[~2018-05-03] MED LIST changes: +ASPIR 8181 MG PO; +ENTRESTO 49 MG1 EACH PO; +PROSCAR 5MG TABL5 MG PO
--- NOTE | 2018-05-03 16:54 | CARDNUC ---
[place] [address] CARDIAC NUCLEAR IMAGING REPORT Name: CALVIN SCHMITT Room: [facility]#: [id number] Admission: 05/03/18 Attend Phys: Yasmany Chen, Discharge: Date of : 30 Date of Service: 05/03/18 1653 Report #: [id number] THIS REPORT FOR: //name// APPROVED REPORT Imaging Protocol: Rest Tc-99m/Stress Tc-99m 2 days Study performed: 05/03/2018 11:00:00 Indication: Dyspnea, Shoulder pain Patient Location: Out-Patient Stress Tech: Erika Austin Stress Nurse: Tanvi Don RN NM Tech:ANIYA Dunbar Ht: 6 ft 0 in Wt: 188 lbs BSA: 2.08 m2 HR: 95 bpm BP: 153/93 mmHg BMI: 25.49 Rhythm: NSR Medical History Medical History: CAD, CT, CHF Medications: Entresto, Persantine, Valsartan, NTG, , Carvedilol, Metformin, ASA, Digoxin, Atorvastatin, Furosemide, Glimepiride Allergies: No known drug allergies Cardiac Risk Factors: Age, DM, Tobacco History (Former) Previous Cardiac Procedures: PCI, ICD Meds Held (48 hrs): Persantine Pharmacologic Stress Pharmacologic stress test was performed by injecting Regadenoson 0.4 mg IV push over 10-15 seconds immediately followed by the intravenous injection of 33.1 mCi of Tc-99m Sestamibi. Time of stress injection: 10:50 Date: 05/03/2018 Administration Route: IV Administration Site: Right Arm Heart Rate at time of stress injection: 126 bpm. Gated Stress SPECT was performed 40 minutes after stress injection. The images were gated to evaluate regional wall motion and calculate left ventricular ejection fraction. Stress Test Details Stress Test: Pharmacologic stress testing performed using 0.4 mg of regadenoson per 5 mL given IV [place] [address] [place] [address] CARDIAC NUCLEAR IMAGING REPORT Name: CALVIN SCHMITT Room: [facility]#: [id number] Admission: 05/03/18 Attend Phys: Yasmany Chen, Discharge: Date of : 30 Date of Service: 05/03/18 1653 Report #: [id number] HR Max Heart Rate (APMHR): 132 bpm Resting HR: 95 bpm Target HR (85% APMHR): 112 bpm Max HR Achieved: 126 bpm % of APMHR: 95 Recovery HR: 98 bpm HR response to stress: Normal HR response to stress BP Resting BP: 153/93 mmHg Max BP: 261/113 mmHg Recovery BP: 100/73 mmHg BP response to stress: Normal blood pressure response to stress. ECG Resting ECG: paced Stress ECG: paced ST Change: none Recovery ECG: paced Recovery ST Change: none Clinical Reason for Termination: Completed protocol Stress Symptoms: None Exercise capacity: 1.00 METs Stress ECG Conclusion v paced, nondiagnostic Study Quality Study: Fair Artifact: Moderate Increased GI uptake Lung Uptake: Normal Study Data Post stress, the left ventricular ejection was 41%.. Perfusion Review of SPECT images at rest reveal a large, severe intensity proximal to distal anterior, septal and apical perfusion defect,and normal perfusion in all other segments. Images after vasodilator stress show that this defect is fixed, without periinfarct ischemia. This is compatible with an anterior CT. Images were [place] [address] CARDIAC NUCLEAR IMAGING REPORT Name: CALVIN SCHMITT Josefina Room: [facility]#: [id number] Admission: 05/03/18 Attend Phys: Yasmany Chen, Discharge: Date of : 30 Date of Service: 05/03/18 1653 Report #: [id number] Wall Motion anterior hypokinesis, severe Nuclear Conclusion ECG Findings: non-diagnostic Clinical Findings: negative for ischemia Nuclear Findings: negative for ischemia Exercise Capacity: not assessed Left Ventricular Function: abnormal Risk Study: high This study reveals evidence of a large anterior scar, viability is not established. High risk based on the size of infarct. <Conclusion> v paced, nondiagnostic <ELECTRONICALLY SIGNED> By: Jose Carlson MD, FACC 05/03/18 1653 165 52 Jose Carlson MD, FAC /INF
== END ==
LOC: M.CRD 04-30 12:38
DX: R06.00 Dyspnea, unspecified (principal); I25.10 Atherosclerotic heart disease of native coronary artery without angina pectoris; I25.2 Old myocardial infarction; I50.9 Heart failure, unspecified; R07.9 Chest pain, unspecified; Z79.899 Other long term (current) drug therapy

== ENCOUNTER 2018-12-13 21:20 | Inpatient (IN) | payer MEDICARE, OTHER ==
[~2018-12-13] VITALS: Ht 182.9 cm; Wt 90.3 kg
[2018-12-13 21:30] VITALS: BP 114/66
[2018-12-13] MEDS ORDERED: CELEBREX 200 M200 M1 PO (21:38)
[2018-12-13] MEDS ORDERED: CARVEDILOL3.125 MG PO (21:38)
[2018-12-13] MEDS ORDERED: FUROSEMIDE 20 M20 MG PO (21:39)
[2018-12-13] MEDS ORDERED: POTASSIUM20 PO (21:39)
[2018-12-13] MEDS ORDERED: FLOMAX0.4 MG PO (21:39)
[2018-12-13] MEDS ORDERED: LIPITOR 20 MG T20 M1 PO (21:40)
[2018-12-13] MEDS ORDERED: VITAMIN D3400 UNIT PO (21:40)
[2018-12-13] MEDS ORDERED: ALLEGRA ALLERG180 MG PO (21:40)
[2018-12-13] MEDS ORDERED: DIGOXIN125 MCG PO (21:40)
[2018-12-13] MEDS ORDERED: NEURONTIN 300300 M1 PO (21:40)
[2018-12-13 21:56] LABS: ABSOLUTE EOSINOPHILS 0.1 thou/uL (0.0-0.7); ABSOLUTE LYMPHOCYTES 1.7 thou/uL (0.8-5.3); ABSOLUTE MONOCYTES 0.5 thou/uL (0.0-1.2); ABSOLUTE NEUTROPHILS 3.1 thou/uL (1.6-8.1); BASOPHILS 0.3 %; EOSINOPHILS 2.1 %; HEMATOCRIT 31.8 % (42.0-52.0); HEMOGLOBIN 10.7 gm/dL (14.0-18.0); LYMPHOCYTES 31.7 %; MCH 27.2 pg (26.0-34.0); MCHC 33.8 g/dL (28.0-37.0); MCV 80.6 fL (80.0-100.0); MONOCYTES 9.1 %; MPV 8.8 fl. (7.2-11.1); NUCLEATED RBCS 0 /100WBC; PLATELET COUNT* 113 thou/uL (150-400); POLYS 56.8 %; RBC 3.94 mil/uL (4.50-6.00); WBC 5.4 thou/uL (4.0-11.0)
[2018-12-13 22:09] LABS: ANION GAP 9 mmol/L (7-16); BUN 33 mg/dL (7-18); CALCIUM 8.4 mg/dL (8.5-10.1); CHLORIDE 104 mmol/L (98-107); CO2 25 mmol/L (21-32); CREATININE 1.8 mg/dL (0.6-1.3); GLUCOSE 233 mg/dL (70-99); INR 1.1; POTASSIUM 4.7 mmol/L (3.5-5.1); PROTIME 11.1 Seconds (9.20-11.50); SODIUM 138 mmol/L (136-145)
[2018-12-13 22:20] LABS: ALBUMIN 3.4 g/dL (3.4-5.0); ALKALINE PHOSPHATASE 57 U/L (46-116); LIPASE 283 U/L (73-393); NT-PRO BRAIN NAT PEPTIDE 227 pg/mL (<300); SGOT 13 U/L (15-37); SGPT 26 U/L (30-65); TOTAL BILIRUBIN 0.4 mg/dL (<0.1-1.0); TOTAL PROTEIN 6.3 g/dL (6.4-8.2); TROPONIN-I LEVEL <0.06 ng/mL (<0.06)
[2018-12-13 22:49] LABS: URINE BILIRUBIN NEGATIVE (Negative); URINE BLOOD NEGATIVE (Negative); URINE CLARITY CLEAR; URINE COLOR YELLOW; URINE GLUCOSE-RANDOM 1+ (Negative); URINE KETONES NEGATIVE (Negative); URINE LEUKOCYTES-REFLEX NEGATIVE (Negative); URINE NITRITE-REFLEX NEGATIVE (Negative); URINE PROTEIN NEGATIVE (Negative); URINE SPECIFIC GRAVITY 1.015 (1.005-1.030); URINE UROBILINOGEN 0.2 E.U./dl (0.2-1.0)
[2018-12-14] VITALS (7 sets, daily range): BP systolic 96–117; BP diastolic 54–69
--- NOTE | 2018-12-14 04:41 | NUR ---
ADMITTED TO ROOM 204 AT 0105 FROM ER, SEE ASSESSMENTS. VSS. DENIES PAIN AND SOA. COMPRESSION WRAP TO RLE PLACED TODAY BY HOME HEALTH NURSE, TOES PINK WITH CAP REFILL <3 SECONDS. PT DENIES TINGLING/NUMBNESS TO R TOES. LIMITED ROM OF LEFT SHOULDER SINCE SURGERY JULY 2018. ORIENTED TO ROOM/CALL LIGHT. BOX LUNCH PROVIDED. CALL LIGHT WITHIN REACH.
--- NOTE | 2018-12-14 09:34 | EKG ---
[place] [address] ELECTROCARDIOGRAM REPORT Name: CALVIN SCHMITT Room: [address] ADM IN .R.#: [id number] Admission: 12/13/18 Attend Phys: Virginia English Discharge: Date of : 30 Report #: [id number] THIS REPORT FOR: //name// [facility] ED Test Date: 2018-12-13 Test Time: 21:43:07 Pat Name: CALVIN SCHMITT Department: Room: [facility] Gender: M Parent Coach: [place] : 1930 Requested By: Yana Francis Order Number: [id number] MD: Yasmany Chen Measurements Intervals [place] Rate: 72 P: 0 SC: 162 QRS: 255 QRSD: 136 T: 73 QT: 414 QTc: 454 Interpretive Statements A-V dual-paced rhythm with some inhibition No further analysis attempted due to paced rhythm Compared to ECG 04/29/2018 01:46:25 Atrial-sensed ventricular-paced complex(es) or rhythm no longer present Electronically Signed On 12-14-2018 9:33:44 CDT by Yasmany Chen [email or web address] <ELECTRONICALLY SIGNED> By: Yasmany Chen MD, FACC 12/14/18 0933 42 Yasmany Chen MD, FAC /EPI
--- NOTE | 2018-12-14 15:21 | NUR ---
Pt in room working with therapy, will f/u later
--- NOTE | 2018-12-14 19:59 | NUR ---
ASSUSSMED CARE OF PT APPROX 0730. REASSESSMENT COMPLETED CHARTED, MEDICATIONS GIVEN CHARTED. DISCUSSED MEDICATIONS WITH PT, PT VERBALIZED UNDERSTANDING OF MEDICATIONS BEING TAKEN. HOURLY ROUNDED FOR PT SAFTEY. PT NEEDS MET. SAFTEY PRECAUTIONS IN PLACE. PERSONAL ITEMS WITHIN REACH.
[2018-12-15] VITALS: BP 106/62
[2018-12-15 04:00] VITALS: BP 139/84
[2018-12-15 05:18] LABS: ABSOLUTE EOSINOPHILS 0.1 thou/uL (0.0-0.7); ABSOLUTE LYMPHOCYTES 1.7 thou/uL (0.8-5.3); ABSOLUTE MONOCYTES 0.4 thou/uL (0.0-1.2); ABSOLUTE NEUTROPHILS 2.5 thou/uL (1.6-8.1); BASOPHILS 0.3 %; EOSINOPHILS 2.3 %; HEMATOCRIT 31.7 % (42.0-52.0); HEMOGLOBIN 10.5 gm/dL (14.0-18.0); LYMPHOCYTES 36.1 %; MCH 26.9 pg (26.0-34.0); MCHC 33.2 g/dL (28.0-37.0); MCV 81.1 fL (80.0-100.0); MONOCYTES 8.5 %; MPV 8.7 fl. (7.2-11.1); NUCLEATED RBCS 0 /100WBC; PLATELET COUNT* 87 thou/uL (150-400); POLYS 52.8 %; RBC 3.91 mil/uL (4.50-6.00); RDW-CV 18.3 % (10.5-14.5); WBC 4.8 thou/uL (4.0-11.0)
[2018-12-15 05:50] LABS: CALCIUM 8.7 mg/dL (8.5-10.1); CREATININE 1.3 mg/dL (0.6-1.3); POTASSIUM 4.5 mmol/L (3.5-5.1)
--- NOTE | 2018-12-15 08:01 | NUR ---
PT AV PACED THROUGH THE NIGHT. NO PAIN OR DISCOMFORT NOTED OR REPORTED. DID REPORT URINATING FREQUENTLY THROUGH THE NIGHT. CALL LIGHT IN REACH. HOURLY ROUNDING FOR SAFETY.
[2018-12-15 08:02] VITALS: BP 102/55
--- NOTE | 2018-12-15 09:20 | NUR ---
ASSUMED CARE OF PT THIS AM AROUND 0715- [employer] HCM DEVELOPER IN PLACE ORDERED, TRACING A-V PACED WITH BBB- UPON ASSESSMENT PT NOTED TO BE RESTING IN BED WITH EYES CLOSED, EASILY ARROUSABLE- PT A&O X4- CONTINENT OF B/B- UP AD-BAYRON IN ROOM, STEADY GAIT NOTED- LCTA, RESP EVEN AND UN-LABORED- VSS, O2 SAT 95% ON RA- ABD SOFT/ROUND/NON-TENDER, BS X4 QUADS- LAST BM REPORTED 12/14/18- GOOD PO INTAKE NOTED THIS AM WITH BREAKFAST, BS MONITORED ORDERED AND CONTROLLED PER ORAL MEDICATIONS- IV NOTED TO RIGHT FA INTACT AND SL- BLE +1 EDEMA NOTED, COMPRESSION STOCKING NOTED IN PLACE TO RLE INDICATED- PT DENIES ANY C/O PAIN/DISCOMFORT AT THIS TIME- CALL LIGHT AND PERSONAL BELONGINGS WITH IN REACH- PT MAKES NEEDS KNOWN- ALL NEEDS MET AT THIS TIME-WCTM
[2018-12-15 09:57] LABS: ALBUMIN 3.7 g/dL (3.4-5.0); CALCIUM 9.4 mg/dL (8.5-10.1); CREATININE 1.4 mg/dL (0.6-1.3); POTASSIUM 4.1 mmol/L (3.5-5.1); TOTAL BILIRUBIN 0.6 mg/dL (<0.1-1.0); TOTAL PROTEIN 6.8 g/dL (6.4-8.2)
[2018-12-15 10:26] VITALS: BP 102/55
--- NOTE | 2018-12-15 10:49 | NUR ---
ORDERS RECEIVED FOR OKAY TO D/C TO HOME THIS SHIFT PER - IV TO [facility] FA D/C'D ALONG WITH [facility] PRIOR TO D/C- D/C EDUCATION/TEACHING/NEEDED FOLLOW UP'S COMMUNICATED WITH PT, WITH VERBAL UNDERSTANDING PER PT NOTED- WRITTEN EDUCATION PROVIDED TO PT- BELONGINGS PACKED AND ACCOUNTED FOR PER PT- PT CURRENLTY DRESSED AND READY FOR D/C, AWAITING RIDE- ALL NEEDS MET AT THIS TIME-WCTM
[2018-12-16 02:06] LABS: GLYCOHEMOGLOBIN (HGB A1C) 7.2 % (4.8-5.6)
--- NOTE | 2018-12-17 09:32 | CON ---
[facility] [address] [place] [address] CONSULTATION Name: CALVIN SCHMITT Room: [address] IN .R.#: [id number] Admission: 12/13/18 Attend Phys: Virginia English Discharge: 12/15/18 Date of : 30 Report #: [id number] THIS REPORT FOR: //name// CC: Terry Jimenes DATE OF SERVICE: 12/14/2018 HISTORY OF PRESENT ILLNESS: This is an 88-year-old male patient who was seen by me for 2 episodes of word finding difficulty. The history is not very clear. The patient's symptoms have resolved this morning. Symptom came spontaneously. There was no associated head trauma. REVIEW OF SYSTEMS: Indicates that this patient did not have this kind of episode before. He has a history of hyper and hypotension, word finding difficulty. 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 He indicated he was not feeling well. He has a history of TIA. He has a history of pacemaker and defibrillator. He has a prior history of tonsillectomy. He has a left rotator cuff problems. He has a history of diabetes. This was his relevant 14-point review of system. PAST MEDICAL HISTORY: Positive for TIA, but the description of that TIA is pretty unstructured. FAMILY HISTORY: Negative for any early age stroke. SOCIAL HISTORY: He does not drink alcohol. PHYSICAL EXAMINATION: Indicate he is alert, responsive. He can follow simple commands. His memory and fund of knowledge is at his baseline, but he does take quite a bit of time sometime to find an appropriate word to describe something. He does have trouble with the left shoulder. Allowing for that, his neuromuscular exam is symmetrical, but there is a significant restriction of the movement on the left shoulder. He does have some bandages around his right foot. He said this is all because of diabetes. On the left side, its position sense is intact. Tone is symmetrical. I did not make him walk. I could not look at his fundus. Cardiac examination is positive for defibrillator and pacemaker. He did not have any respiratory difficulty or rhonchi. His last blood pressure was 101/58, respiration was 20, pulse is 70, temperature is 98.6. LABORATORY DATA: Indicated a normal white count. He is somewhat anemic. His GFR is only 36. He did not have any imaging study of the brain, the best I can tell. IMPRESSION: This patient presented with episodes of word finding difficulty. He needs workup for transient ischemic attack. [place] tells [place] [address] CONSULTATION Name: KESHIACALVIN T Room: [address]#: [id number] Admission: 12/13/18 Attend Phys: Virginia English Discharge: 12/15/18 Date of : 30 Report #: [id number] and defibrillator is not compatible with MRI. Because of that, I will start with a CT and ultrasound of the carotid. I will not proceed with CT angiogram at the moment because of his low GFR, but we will await all the testing to see what further need to be done. Thank you very much for this referral. <ELECTRONICALLY SIGNED> By: Luis Eduardo Holliday MD 12/17/18 0932 1241 1301Parveleandro Holliday MD /nt
== END 2018-12-15 11:45 | disposition home or self-care (01) | DRG 314 ==
LOC: M.ERS 21:20 → M.2W 23:05 → M.TBA-ER 23:05 → M.2W 23:33
PROVIDERS: Emergency Medicine; Internal Medicine; ADMIT Internal Medicine
DX: I95.9 Hypotension, unspecified (principal); G93.41 Metabolic encephalopathy; N17.9 Acute kidney failure, unspecified; I50.42 Chronic combined systolic (congestive) and diastolic (congestive) heart failure; E78.5 Hyperlipidemia, unspecified; F41.9 Anxiety disorder, unspecified; M19.90 Unspecified osteoarthritis, unspecified site; I25.10 Atherosclerotic heart disease of native coronary artery without angina pectoris; I11.0 Hypertensive heart disease with heart failure; E11.9 Type 2 diabetes mellitus without complications; Z79.84 Long term (current) use of oral hypoglycemic drugs; M75.102 Unspecified rotator cuff tear or rupture of left shoulder, not specified as traumatic; Z87.442 Personal history of urinary calculi; I25.2 Old myocardial infarction; Z95.5 Presence of coronary angioplasty implant and graft; Z86.73 Personal history of transient ischemic attack (TIA), and cerebral infarction without residual deficits; Z95.810 Presence of automatic (implantable) cardiac defibrillator; Z79.82 Long term (current) use of aspirin

== ENCOUNTER 2020-01-30 16:58 | Emergency (ER) | payer MEDICARE, OTHER ==
[~2020-01-30] VITALS: Ht 182.9 cm; Wt 93.0 kg
[~2020-01-30 16:58] MED LIST changes: +CELEBREX 200 M200 M1 PO; +DIGOXIN125 MCG PO; +FLOMAX0.4 MG PO; +FUROSEMIDE 20 M20 MG PO; +NEURONTIN 300300 M1 PO; +POTASSIUM20 PO; +VITAMIN D3400 UNIT PO
[2020-01-30] MEDS ORDERED: ELIQUIS2.5 MG PO (17:14)
[2020-01-30 17:26] LABS: ABSOLUTE EOSINOPHILS 0.1 thou/uL (0.0-0.7); ABSOLUTE LYMPHOCYTES 2.4 thou/uL (0.8-5.3); ABSOLUTE MONOCYTES 0.6 thou/uL (0.0-1.2); ABSOLUTE NEUTROPHILS 3.4 thou/uL (1.6-8.1); BASOPHILS 0.4 %; EOSINOPHILS 2.1 %; HEMOGLOBIN 12.1 gm/dL (14.0-18.0); LYMPHOCYTES 36.3 %; MCH 27.9 pg (26.0-34.0); MCHC 33.5 g/dL (28.0-37.0); MCV 83.1 fL (80.0-100.0); MONOCYTES 8.8 %; MPV 8.4 fl. (7.2-11.1); NUCLEATED RBCS 0 /100WBC; PLATELET COUNT* 152 thou/uL (150-400); POLYS 52.4 %; RBC 4.33 mil/uL (4.50-6.00); RDW-CV 16.4 % (10.5-14.5); WBC 6.5 thou/uL (4.0-11.0)
[2020-01-30 17:38] LABS: ANION GAP 6 mmol/L (7-16); BUN 26 mg/dL (7-18); CALCIUM 8.4 mg/dL (8.5-10.1); CHLORIDE 104 mmol/L (98-107); CO2 29 mmol/L (21-32); CREATININE 1.6 mg/dL (0.6-1.3); GLUCOSE 138 mg/dL (70-99); POTASSIUM 4.3 mmol/L (3.5-5.1); SODIUM 139 mmol/L (136-145)
[2020-01-30 17:39] LABS: APTT 26.6 Seconds (25.0-31.3); INR 1.1; PROTIME 11.5 Seconds (9.20-11.50)
[2020-01-30 17:51] LABS: ALBUMIN 3.3 g/dL (3.4-5.0); ALKALINE PHOSPHATASE 71 U/L (46-116); CK-MB MASS < 0.5 ng/mL (<0.5-3.6); LIPASE 164 U/L (73-393); MAGNESIUM 1.9 mg/dL (1.8-2.4); NT-PRO BRAIN NAT PEPTIDE 1306 pg/mL (<300); SGOT 20 U/L (15-37); SGPT 23 U/L (30-65); TOTAL BILIRUBIN 0.6 mg/dL (<0.1-1.0); TOTAL PROTEIN 6.4 g/dL (6.4-8.2)
[2020-01-30 19:30] VITALS: BP 93/55
--- NOTE | 2020-01-31 10:34 | EKG ---
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: [place] : 1930 Requested By: Stanton Griffiths Order Number: [id number] MD: Yasmany Chen Measurements Intervals [place] Rate: 63 P: 0 [place]: 216 QRS: 239 QRSD: 146 T: 75 QT: 444 QTc: 455 Interpretive Statements Ventricular-paced rhythm No further analysis attempted due to paced rhythm Baseline wander in lead(s) V4 Compared to ECG 12/13/2018 21:43:07 No significant changes Electronically Signed On 01-31-2020 10:34:16 CIVIL ENGINEERING DIRECTOR by Yasmany Chen [email or web address] <ELECTRONICALLY SIGNED> By: Yasmany Chen MD, FACC 01/31/20 1034 171 171 Yasmany Chen MD, FAC /EPI
== END 2020-01-30 19:30 | disposition home or self-care (01) ==
LOC: M.ERS 16:58
PROVIDERS: Family Medicine
DX: R42 Dizziness and giddiness (principal); M19.90 Unspecified osteoarthritis, unspecified site; E78.5 Hyperlipidemia, unspecified; E11.9 Type 2 diabetes mellitus without complications; I11.0 Hypertensive heart disease with heart failure; I50.9 Heart failure, unspecified; Z90.89 Acquired absence of other organs